=== PATIENT | male | born 1995 | race Hispanic/Latino ===

== ENCOUNTER 2024-01-07 19:59 | Inpatient (IN) | payer SELFPAY ==
[~2024-01-07 19:59] MED LIST: Iopamidol 300 61% 100 ML VIAL FS ONE
[2024-01-07] MEDS ORDERED: Ondansetron PF 4 MG/2 ML Vial ONE (21:59)
[2024-01-07 22:09] LABS: ALT (SGPT) 11 U/L (8-55); AST (SGOT) 27 U/L (5-34); Albumin 4.7 g/dL (3.5-5.0); Alkaline Phosphatase 65 U/L (40-110); Anion Gap 18 mmol/L (10-20); BUN (Urea Nitrogen) 22 mg/dL (8.9-20.6); Bilirubin, Total 0.6 mg/dL (0.2-1.2); Calc. Creatinine Clearance 0 mL/min (70-130); Calcium 10.3 mg/dL (7.8-10.44); Carbon Dioxide 25 mmol/L (22-29); Chloride 103 mmol/L (98-107); Estimated GFR 119; Globulin 3.4 g/dL (2.4-3.5); Glucose 113 mg/dL (70-105); Lipase 12 U/L (8-78); Potassium 3.7 mmol/L (3.5-5.1); Protein, Total 8.1 g/dL (6.0-8.3); Sodium 142 mmol/L (136-145)
[2024-01-07 22:34] LABS: #Basophils 0.06 10x3/uL (0.0-0.2); #Eosinophils 0.21 10x3/uL (0.0-0.5); #Monocytes 0.49 10x3/uL (0.0-1.1); #Neutrophils 10.32 10x3/uL (1.5-8.4); %Basophils 0.5 % (0.0-2.0); %Eosinophils 1.7 % (0.0-6.0); %Monocytes 3.9 % (0.0-10.0); %Neutrophils 81.6 % (40.0-75.0); Hematocrit 43.1 % (38.8-50.0); Hemoglobin 15.1 g/dL (13.5-17.5); Mean Corpuscular Hemoglobin 30.9 pg (27.0-33.0); Mean Corpuscular Volume 88.1 fL (81.2-95.1); Mean Platelet Volume 10.8 fL (7.4-10.4); Platelet Count 258 10x3/uL (150-450); RBC Distribution Width 11.6 % (11.5-14.5); Red Blood Cell (RBC) Count 4.89 10x6/uL (4.32-5.72); White Blood Cell (WBC) Count 12.6 10x3/uL (3.5-10.5)
[2024-01-07] MEDS ORDERED: Ketorolac Tromethamine 30 MG (1 mL) VIAL ONE (22:38)
[2024-01-07] MEDS ORDERED: Famotidine/PF 20 mg/2ml Vial ONE (22:39)
[2024-01-08] MEDS ORDERED: Piperacillin/Tazobactam 4.5 GM VIAL ONE (00:38)
[2024-01-08] MEDS: fentaNYL 50 mcg/mL 1 mL Vial SLOW IVP PRN (03:02)
[2024-01-08] MEDS: Sodium Chloride 0.9% 1,000 ML IV SCH (03:02)
[2024-01-08] MEDS ORDERED: Ondansetron ODT 4 MG TAB PO PRN (03:27)
[2024-01-08] MEDS ORDERED: Ondansetron PF 4 MG/2 ML Vial IVP PRN (03:27)
[2024-01-08] MEDS: fentaNYL 50 mcg/mL 1 mL Vial ONE (04:02)
[2024-01-08 04:07] VITALS: BMI 25.4
[2024-01-08] MEDS: Piperacillin/Tazobactam 3.375 GM in Sodium Chloride 0.9% 100 ML IVPB SCH (11:53)
[2024-01-08] MEDS: FLU (Fluarix Triv) TS24-25(6MOS UP)/PF 45 MCG/0.5 ML Syringe IM ONE (11:54)
[2024-01-09 04:47] LABS: #Basophils 0.07 10x3/uL (0.0-0.2); #Eosinophils 0.59 10x3/uL (0.0-0.5); #Monocytes 0.78 10x3/uL (0.0-1.1); #Neutrophils 5.18 10x3/uL (1.5-8.4); %Basophils 0.7 % (0.0-2.0); %Eosinophils 6.1 % (0.0-6.0); %Lymphocytes 31.1 % (18.0-47.0); %Monocytes 8.1 % (0.0-10.0); %Neutrophils 53.8 % (40.0-75.0); Hematocrit 40.7 % (38.8-50.0); Mean Corpuscular HGB CONC 34.4 g/dL (32.0-36.0); Mean Corpuscular Hemoglobin 31.1 pg (27.0-33.0); Mean Corpuscular Volume 90.4 fL (81.2-95.1); Mean Platelet Volume 10.9 fL (7.4-10.4); Platelet Count 227 10x3/uL (150-450); RBC Distribution Width 11.8 % (11.5-14.5); White Blood Cell (WBC) Count 9.6 10x3/uL (3.5-10.5)
[2024-01-09 09:15] VITALS: BP 134/77; TEMP 97.8
== END 2024-01-09 10:13 | disposition home or self-care (01) | DRG 392 ==
LOC: CSHERS 19:59 → CSHTELE 01-08 00:52
PROVIDERS: ADMIT Surgery; ATTEND Surgery
DX: K52.9 Noninfective gastroenteritis and colitis, unspecified (principal)
CPT/HCPCS: 36415; 74177; 80053; 83690; 85025; J1885; J2405; J2543; J3010; J3490; J7030; Q9967

== ENCOUNTER 2024-10-16 08:43 | Emergency (ER) | payer SELFPAY ==
[2024-10-16] MEDS ORDERED: Ondansetron PF 4 MG/2 ML Vial ONE (09:45)
[2024-10-16 09:55] LABS: #Basophils 0.04 10x3/uL (0.0-0.2); #Eosinophils 0.07 10x3/uL (0.0-0.5); #Monocytes 0.59 10x3/uL (0.0-1.1); #Neutrophils 4.53 10x3/uL (1.5-8.4); %Basophils 0.5 % (0.0-2.0); %Eosinophils 1.0 % (0.0-6.0); %Lymphocytes 28.4 % (18.0-47.0); %Monocytes 8.0 % (0.0-10.0); %Neutrophils 61.8 % (40.0-75.0); Hematocrit 42.0 % (38.8-50.0); Hemoglobin 14.7 g/dL (13.5-17.5); Mean Corpuscular Hemoglobin 30.8 pg (27.0-33.0); Mean Corpuscular Volume 88.1 fL (81.2-95.1); Platelet Count 256 10x3/uL (150-450); Red Blood Cell (RBC) Count 4.77 10x6/uL (4.32-5.72); White Blood Cell (WBC) Count 7.33 10x3/uL (3.5-10.5)
[2024-10-16] MEDS ORDERED: Iopamidol 300 61% 100 ML VIAL FS ONE (09:59)
[2024-10-16 10:13] LABS: ALT (SGPT) 8 U/L (Less than 45); AST (SGOT) 24 U/L (11-34); Albumin 4.8 g/dL (3.1-4.5); Alkaline Phosphatase 54 U/L (40-110); Anion Gap 16 mmol/L (10-20); BUN (Urea Nitrogen) 17 mg/dL (8.9-20.6); Bilirubin, Total 0.7 mg/dL (0.3-1.2); Calc. Creatinine Clearance 0 mL/min (70-130); Calcium 9.4 mg/dL (7.8-10.44); Carbon Dioxide 22 mmol/L (22-29); Chloride 107 mmol/L (98-107); Globulin 3.2 g/dL (2.4-3.5); Glucose 100 mg/dL (70-105); Lipase 19 U/L (8-78); Potassium 4.2 mmol/L (3.5-5.1); Sodium 141 mmol/L (136-145)
[2024-10-16 14:46] LABS: CRP,High Sensitivity (Inhouse) 0.09 mg/dL (< or = 0.5)
== END 2024-10-16 13:09 | disposition home or self-care (01) ==
LOC: CSHERS 08:43
DX: R10.31 Right lower quadrant pain (principal)
CPT/HCPCS: 74177; 80053; 83605; 83690; 85025; 86141; 96374; 96375; J2270; J2405; Q9967

== ENCOUNTER 2025-01-04 17:48 | Emergency (ER) | payer SELFPAY ==
[2025-01-04] MEDS ORDERED: Dicyclomine 20 MG TAB ONE (18:25)
[2025-01-04 18:38] LABS: #Basophils 0.04 10x3/uL (0.0-0.2); #Eosinophils 0.31 10x3/uL (0.0-0.5); #Monocytes 0.70 10x3/uL (0.0-1.1); #Neutrophils 4.75 10x3/uL (1.5-8.4); %Basophils 0.5 % (0.0-2.0); %Eosinophils 3.7 % (0.0-6.0); %Lymphocytes 30.6 % (18.0-47.0); %Monocytes 8.4 % (0.0-10.0); %Neutrophils 56.7 % (40.0-75.0); Hematocrit 46.7 % (38.8-50.0); Hemoglobin 16.2 g/dL (13.5-17.5); Mean Corpuscular Hemoglobin 30.4 pg (27.0-33.0); Mean Corpuscular Volume 87.6 fL (81.2-95.1); Platelet Count 251 10x3/uL (150-450); Red Blood Cell (RBC) Count 5.33 10x6/uL (4.32-5.72); White Blood Cell (WBC) Count 8.37 10x3/uL (3.5-10.5)
[2025-01-04 18:54] LABS: ALT (SGPT) 15 U/L (Less than 45); AST (SGOT) 28 U/L (11-34); Albumin 5.1 g/dL (3.1-4.5); Alkaline Phosphatase 83 U/L (40-110); Anion Gap 13 mmol/L (10-20); BUN (Urea Nitrogen) 20 mg/dL (8.9-20.6); Bilirubin, Total 0.6 mg/dL (0.3-1.2); Calc. Creatinine Clearance 0 mL/min (70-130); Calcium 9.6 mg/dL (7.8-10.44); Carbon Dioxide 25 mmol/L (22-29); Chloride 105 mmol/L (98-107); Globulin 3.2 g/dL (2.4-3.5); Glucose 93 mg/dL (70-105); Lipase 9 U/L (8-78); Potassium 3.8 mmol/L (3.5-5.1); Sodium 139 mmol/L (136-145)
[2025-01-04] MEDS ORDERED: Ondansetron PF 4 MG/2 ML Vial ONE (19:00)
[2025-01-04 19:31] LABS: Glucose, Urine (Dipstick) Normal (Negative); Leukocyte Negative (Negative); Protein, Urine (Dipstick) 30 mg/dl (Neg-Trace); Specific Gravity, Urine 1.025 (1.005-1.030)
[2025-01-04 19:39] LABS: Bacteria/HPF Rare-Few HPF (None Seen); CAUTI Indications for Culture Dysuria,urgency,freq; Mucous/LPF 2+ LPF (<2+); RBC/HPF 0-3 HPF (0-3); WBC/HPF None Seen HPF (0-3)
[2025-01-04 19:40] LABS: Urine Culture Reflex No No
== END 2025-01-04 19:54 | disposition home or self-care (01) ==
LOC: CSHERS 17:48
DX: K52.9 Noninfective gastroenteritis and colitis, unspecified (principal)
CPT/HCPCS: 80053; 81001; 83690; 85025; 96361; 96374